=== PATIENT | male | born 1930 | race Caucasian/White ===

== ENCOUNTER 2016-09-04 12:41 | Inpatient (IN) ==
[2016-09-04] MEDS ORDERED: *HR* HYDROcodone/Acet 5/325 mg TABLET PO PRN (23:12)
[2016-09-04] MEDS ORDERED: Acetaminophen/Butalbital/CaffeineTABLET PO PRN (23:12)
[2016-09-05] MEDS ORDERED: cloNIDine HCl 0.1 MG TABLET PO ONE (00:38)
[2016-09-05 05:32] LABS: Basophils # 0.1 K/mcL (0.0-0.2); Eosinophils # 0.2 K/mcL (0.0-0.6); Eosinophils % 3.2 %; Hemoglobin 10.9 g/dL (12.9-16.9); Immature Granulocytes % 0.4 % (0-4); Lymphocytes # 1.6 K/mcL (0.6-4.6); Lymphocytes % 23.7 %; Mean Corpuscular Hemoglobin 28.9 pg (28.0-33.3); Mean Corpuscular Volume 87.5 fL (83.0-100.0); Mean Platelet Volume 9.9 fL (9.4-12.4); Monocytes # 0.6 K/mcL (0.0-1.3); Monocytes % 9.3 %; Neutrophils # 4.2 K/mcL (1.6-8.9); Platelet Count 186 K/mcL (140-400); Red Blood Count 3.77 M/mcL (4.19-5.50); Red Cell Distribution Width 13.4 % (11.5-14.5); Segmented Neutrophils % 62.4 %
[2016-09-05 05:33] LABS: INR 1.1; Prothrombin Time 11.9 Seconds (9.4-12.1)
[2016-09-05 05:35] LABS: Activated Partial Thrombo Time 29.2 Seconds (26.0-36.0)
[2016-09-05 05:38] LABS: BUN/Creatinine Ratio 11 (6-26); Blood Urea Nitrogen 13 mg/dL (8-26); Calcium 8.7 mg/dL (8.6-10.8); Carbon Dioxide 25 mEq/L (19-29); Chloride 108 mEq/L (98-109); Glucose 127 mg/dL (70-99); Osmolality,Calculated 298 (280-300); Potassium 2.9 mEq/L (3.5-4.5); Sodium 143 mEq/L (136-145); eGFR For African Americans > 60 (> 60); eGFR For Non-African Americans 60 (> 60)
[2016-09-05] MEDS: predniSONE 5 MG TABLET PO SCH (08:15)
[2016-09-05] MEDS: Metoprolol XL (24 HR) Succ 50 MG TAB.ER.24H PO SCH (08:16)
[2016-09-05] MEDS: Multivit/Ca/Min/Fe/FA 1 TAB TABLET PO SCH (08:16)
[2016-09-05] MEDS: amLODIPine 5 MG TABLET PO SCH (08:16)
[2016-09-05] MEDS: Aspirin 81 MG TAB.CHEW PO SCH (08:16)
[2016-09-05] MEDS: GARLIC 100 MG PO SCH (08:17)
[2016-09-05] MEDS: LUTEIN 10 MG PO SCH (08:17)
[2016-09-05] MEDS: *HR* Metformin 500 MG TABLET PO SCH (12:16)
--- NOTE | 2016-09-05 19:02 | Internal Med History&Physical ---
Date of Encounter: 09/05/16 Time of Encounter: 19:00 Assessment and Plan (1) Hypertension Current visit: Yes Status: Chronic Given Her dose of clonidine last night. On metoprolol and Cozaar. Qualifiers: Hypertension type: essential hypertension Qualified Code(s): I10 - Essential (primary) hypertension (2) Acute CVA (cerebrovascular accident) Current visit: Yes Status: Acute Left basal ganglia, frontal she can make stroke. Slurred speech. PTOT will work on improving activity of daily living. Speech work on therapy. Internal Medicine - H&P: HPI Admitted From: Intrahospital Transfer Plans for Post Hospital Care: Home History of present illness: Mr. Maria is a 86 year old male admitted to this facility after having a left basal ganglia frontal lobe she can make stroke. Residual deficit his slurred speech. Patient is a history of hypertension. Today's examination he has no specific new complaint. No shortness of breath. No headache. No lethargy. No pain. No nausea no vomiting. Past Med Surg Social Fam HX - Past Medical History Medical history: hypertension, cancer Psychiatric history: anxiety, depression - Past Surgical History Surgical History: angioplasty/stent - Social History Smoking Status: Former smoker Smokeless Tobacco Status: No Alcohol use: none Drug use: none Internal Medicine - H&P: Meds Aspirin 81 mg PO DAILY 09/04/15 [History] Doxazosin Mesylate [Cardura Xl] 4 mg PO HS 09/04/15 [History] Irbesartan [Avapro] 300 mg PO DAILY 09/04/15 [History] Meclizine HCl [Verticalm] 25 mg PO TID PRN 09/04/15 [History] Potassium Chloride [Klor-Con Sprinkle] 20 meq PO BID 09/04/15 [History] Amlodipine Besylate 10 mg PO DAILY 09/02/16 [History] Atorvastatin Calcium [Lipitor] 80 mg PO HS 09/02/16 [History] Loratadine [Claritin] 10 mg PO PRN PRN 09/02/16 [History] Metoprolol Succinate 200 mg PO DAILY 09/02/16 [History] metFORMIN [Glucophage] 500 mg PO 1200 09/02/16 [History] predniSONE [Prednisone] 2.5 mg PO DAILY 09/02/16 [History] Donepezil [Aricept] 5 mg PO DAILY 09/03/16 [History] Garlic [Odor Free Garlic] 100 mg PO DAILY 09/03/16 [History] Lutein 10 mg PO DAILY 09/03/16 [History] Multivitamin [One Daily Multivitamin] 1 each PO DAILY 09/03/16 [History] Butalb/Acetaminophen/Caffeine [Fioricet 50-300-40 mg Capsule] 1 each PO PRN PRN 09/04/16 [History] Clopidogrel [Plavix] 75 mg PO DAILY #30 tablet 09/04/16 [Rx] HYDROcodone/Acet 5/325 mg [[place] 5-325 mg] 1 tab PO TID PRN #12 tab 09/04/16 [Rx ] Allergies No Known Allergies Allergy (Verified 09/02/15 09:19) All Systems PM: A 10-system review of systems was performed and is negative for pertinent findings except as documented above in the HPI. - Constitutional Constitutional: falls, malaise - Cardiovascular Cardiovascular ROS IM: no chest pain, no diaphoresis, no dyspnea, no lightheadedness, no palpitations, no syncope - Respiratory Respiratory: no cough, no dyspnea, no wheezing, no excessive phlegm production - Gastrointestinal Gastrointestinal: no abdominal pain, no diarrhea, no hematemesis, no hematochezia, no melena, no nausea, no vomiting - Musculoskeletal Musculoskeletal ROS IM: arthralgias, muscle weakness - Neurological Neurological ROS: abnormal gait, abnormal speech - Constitutional Vitals: Temp Pulse Resp BP Pulse Ox 97.6 F 69 16 189/92 95 09/05/16 16:19 09/05/16 16:19 09/05/16 16:19 09/05/16 16:19 09/05/16 16:19 General appearance: Present: A&O X 2, no acute distress - Respiratory Respiratory exam: Present: CTAB. Absent: accessory muscle use, rales, rhonchi, wheezes - Cardiovascular Cardiovascular exam: Present: RRR, +S1, +S2. Absent: diastolic murmur, gallop, rubs, systolic murmur - Extremities Exam Extremities exam: Absent: calf tenderness, pedal edema - Neurological Exam Neurological exam: Present: speech deficit Internal Med - H&P Results - Labs CBC & Chem 7: 09/05/16 05:20 09/05/16 05:20 Labs: Short CBC 09/05/16 Range/Units 05:20 WBC 6.8 (4.3-11.1) K/mcL Hgb 10.9 L (12.9-16.9) g/dL Hct 33.0 L (37.5-50.1) % Plt Count 186 (140-400) K/mcL Neutrophils # 4.2 (1.6-8.9) K/mcL BMP 09/05/16 05:20 Sodium 143 Potassium 2.9 L Chloride 108 Carbon Dioxide 25 BUN 13 Creatinine 1.16 Glucose 127 H Calcium 8.7 - VTE Documentation of Mechanical Device: Graduated compression elastic hosiery
[2016-09-06] MEDS: Aspirin 81 MG TAB.CHEW PO SCH (08:23)
[2016-09-06] MEDS: amLODIPine 5 MG TABLET PO SCH (08:23)
[2016-09-06] MEDS: Metoprolol XL (24 HR) Succ 50 MG TAB.ER.24H PO SCH (08:23)
[2016-09-06] MEDS: predniSONE 5 MG TABLET PO SCH (08:24)
[2016-09-06] MEDS: Multivit/Ca/Min/Fe/FA 1 TAB TABLET PO SCH (08:24)
[2016-09-06] MEDS: GARLIC 100 MG PO SCH (08:37)
[2016-09-06] MEDS: LUTEIN 10 MG PO SCH (08:37)
--- NOTE | 2016-09-06 09:21 | Internal Med Progress Note ---
Date of Encounter: 09/06/16 Time of Encounter: 09:19 - Assessment and plan (1) Acute CVA (cerebrovascular accident) Current Visit: Yes Status: Acute Assessment and plan: PT and OT gianluca Lazcano speech working on deficit. (2) Hypertension Current Visit: Yes Status: Chronic Assessment and plan: Still slightly elevated. We will give metoprolol and Cozaar this morning. Qualifiers: Hypertension type: essential hypertension Qualified Code(s): I10 - Essential (primary) hypertension (3) Hypokalemia Current Visit: Yes Status: Acute Assessment and plan: K supplement increased. Will follow level - Time Spent With Patient less than 15 minutes - Subjective Interval history: No new for his complaint except for the same speech abnormality. No headache. No chest pain. No nausea no vomiting. - Constitutional Vitals: Temp Pulse Resp BP Pulse Ox 98.6 F 67 18 174/90 94 09/06/16 08:28 09/06/16 08:28 09/06/16 08:28 09/06/16 08:28 09/06/16 08:28 General appearance: Present: A&O X 2, no acute distress - Respiratory Respiratory exam: Present: CTAB. Absent: accessory muscle use, rales, rhonchi, wheezes - Cardiovascular Cardiovascular exam: Present: RRR, +S1, +S2. Absent: diastolic murmur, gallop, rubs, systolic murmur - Extremities Exam Extremities exam: Present: warm, radial pulses palpable and symetrical. Absent : calf tenderness, cyanotic, pedal edema - Neurological Exam Neurological exam: Present: speech deficit Internal Medicine: Result - Labs CBC & Chem 7: 09/05/16 05:20 09/05/16 05:20 - ABG Interpretation ABG results: PT/INR, D-dimer PT 11.9 Seconds (9.4-12.1) 09/05/16 05:20 - VTE Documentation of Mechanical Device: Graduated compression elastic hosiery Consult Discharge Plan - Plan Referrals: Job Hinojosa, [employer]ER [Primary Care Provider] -
[2016-09-06] MEDS: *HR* Metformin 500 MG TABLET PO SCH (12:24)
[2016-09-07 05:16] LABS: INR 1.1; Prothrombin Time 11.9 Seconds (9.4-12.1)
[2016-09-07 05:19] LABS: Basophils # 0.1 K/mcL (0.0-0.2); Eosinophils # 0.2 K/mcL (0.0-0.6); Eosinophils % 2.6 %; Hematocrit 35.4 % (37.5-50.1); Hemoglobin 11.9 g/dL (12.9-16.9); Immature Granulocytes % 0.3 % (0-4); Lymphocytes # 1.7 K/mcL (0.6-4.6); Lymphocytes % 24.1 %; Mean Corpuscular HGB Conc 33.6 g/dL (31.6-35.5); Mean Corpuscular Hemoglobin 29.5 pg (28.0-33.3); Mean Corpuscular Volume 87.6 fL (83.0-100.0); Mean Platelet Volume 9.9 fL (9.4-12.4); Monocytes # 0.7 K/mcL (0.0-1.3); Monocytes % 9.4 %; Neutrophils # 4.4 K/mcL (1.6-8.9); Platelet Count 172 K/mcL (140-400); Red Blood Count 4.04 M/mcL (4.19-5.50); Red Cell Distribution Width 13.6 % (11.5-14.5); Segmented Neutrophils % 62.6 %
[2016-09-07 05:20] LABS: Activated Partial Thrombo Time 29.7 Seconds (26.0-36.0)
[2016-09-07 05:24] LABS: BUN/Creatinine Ratio 18 (6-26); Blood Urea Nitrogen 18 mg/dL (8-26); Calcium 8.9 mg/dL (8.6-10.8); Carbon Dioxide 24 mEq/L (19-29); Chloride 109 mEq/L (98-109); Glucose 123 mg/dL (70-99); Osmolality,Calculated 301 (280-300); Potassium 3.1 mEq/L (3.5-4.5); Sodium 144 mEq/L (136-145); eGFR For African Americans > 60 (> 60); eGFR For Non-African Americans > 60 (> 60)
[2016-09-07] MEDS: Metoprolol XL (24 HR) Succ 50 MG TAB.ER.24H PO SCH (09:30)
[2016-09-07] MEDS: amLODIPine 5 MG TABLET PO SCH (09:31)
[2016-09-07] MEDS: Loratadine 10 MG TABLET PO PRN (09:31)
[2016-09-07] MEDS: GARLIC 100 MG PO SCH (09:32)
[2016-09-07] MEDS: predniSONE 5 MG TABLET PO SCH (09:32)
[2016-09-07] MEDS: Multivit/Ca/Min/Fe/FA 1 TAB TABLET PO SCH (09:32)
[2016-09-07] MEDS: Aspirin 81 MG TAB.CHEW PO SCH (09:32)
[2016-09-07] MEDS: LUTEIN 10 MG PO SCH (09:32)
--- NOTE | 2016-09-07 10:07 | Internal Med Progress Note ---
Date of Encounter: 09/07/16 Time of Encounter: 10:05 - Assessment and plan (1) Acute CVA (cerebrovascular accident) Current Visit: Yes Status: Acute Assessment and plan: PT and OT speech working on deficit. (2) Hypertension Current Visit: Yes Status: Chronic Assessment and plan: Still slightly elevated. We will give metoprolol and Cozaar this morning. Qualifiers: Hypertension type: essential hypertension Qualified Code(s): I10 - Essential (primary) hypertension (3) Hypokalemia Current Visit: Yes Status: Acute Assessment and plan: K supplement increased. K improve to 3/6 - Subjective Interval history: No new for his complaint except for the same speech abnormality. No headache. No chest pain. No nausea no vomiting. - Constitutional Vitals: Temp Pulse Resp BP Pulse Ox 97.8 F 69 16 175/102 93 09/07/16 07:00 09/07/16 07:00 09/07/16 07:00 09/07/16 07:00 09/07/16 07:00 General appearance: Present: A&O X 2, no acute distress - Respiratory Respiratory exam: Present: CTAB. Absent: accessory muscle use, rales, rhonchi, wheezes - Cardiovascular Cardiovascular exam: Present: RRR, +S1, +S2. Absent: diastolic murmur, gallop, rubs, systolic murmur - GI/Abdominal GI/Abdominal exam: Present: normal bowel sounds, soft, no peritoneal signs. Absent: distended, tenderness - Neurological Exam Neurological exam: Present: speech deficit Internal Medicine: Result - Labs CBC & Chem 7: 09/07/16 04:45 09/07/16 04:45 Labs: Short CBC 09/07/16 Range/Units 04:45 WBC 7.0 (4.3-11.1) K/mcL Hgb 11.9 L (12.9-16.9) g/dL Hct 35.4 L (37.5-50.1) % Plt Count 172 (140-400) K/mcL Neutrophils # 4.4 (1.6-8.9) K/mcL BMP 09/07/16 04:45 Sodium 144 Potassium 3.1 L Chloride 109 Carbon Dioxide 24 BUN 18 Creatinine 1.02 Glucose 123 H Calcium 8.9 - ABG Interpretation ABG results: PT/INR, D-dimer PT 11.9 Seconds (9.4-12.1) 09/07/16 04:45 - VTE Documentation of Mechanical Device: Graduated compression elastic hosiery Consult Discharge Plan - Plan Referrals: Job Hinojosa CNP [Primary Care Provider] -
[2016-09-07] MEDS: *HR* Metformin 500 MG TABLET PO SCH (13:38)
[2016-09-08] MEDS: predniSONE 5 MG TABLET PO SCH (08:35)
[2016-09-08] MEDS: Aspirin 81 MG TAB.CHEW PO SCH (08:35)
[2016-09-08] MEDS: amLODIPine 5 MG TABLET PO SCH (08:35)
[2016-09-08] MEDS: Loratadine 10 MG TABLET PO PRN (08:36)
[2016-09-08] MEDS: Multivit/Ca/Min/Fe/FA 1 TAB TABLET PO SCH (08:36)
[2016-09-08] MEDS: GARLIC 100 MG PO SCH (08:36)
[2016-09-08] MEDS: Metoprolol XL (24 HR) Succ 50 MG TAB.ER.24H PO SCH (08:36)
[2016-09-08] MEDS: LUTEIN 10 MG PO SCH (08:36)
--- NOTE | 2016-09-08 14:16 | Internal Med Progress Note ---
Date of Encounter: 09/08/16 Time of Encounter: 14:14 - Assessment and plan (1) Hypertension Current Visit: Yes Status: Chronic Assessment and plan: His blood pressure diastolically is still a little elevated we will follow that. Qualifiers: Hypertension type: essential hypertension Qualified Code(s): I10 - Essential (primary) hypertension (2) Chronic steroid use Current Visit: No Status: Chronic Assessment and plan: Noted by history (3) Coronary artery disease Current Visit: No Status: Chronic Assessment and plan: By history Qualifiers: Coronary Disease-Associated Artery/Lesion type: [place] artery [place] vs. transplanted heart: [place] heart Associated angina: without angina Qualified Code(s): I25.10 - Atherosclerotic heart disease of [place] coronary artery without angina pectoris (4) Acute CVA (cerebrovascular accident) Current Visit: Yes Status: Acute Assessment and plan: Main problem patient is here for. Rehabilitation due to a CVA. - Time Spent With Patient less than 15 minutes - Subjective Interval history: Patient's working with her therapist and is receiving PT OT TR and speech. - Constitutional Vitals: Temp Pulse Resp BP Pulse Ox 97.7 F 67 18 178/91 93 09/08/16 07:00 09/08/16 07:00 09/08/16 07:00 09/08/16 07:00 09/08/16 07:00 General appearance: Present: A&O X 2, no acute distress - Head Head exam: Present: atraumatic, normal inspection, normocephalic - Neck Neck exam general surgery: Present: supple, trachea midline. Absent: lymphadenopathy - Respiratory Respiratory exam: Present: CTAB. Absent: accessory muscle use, rales, rhonchi, wheezes - Cardiovascular Cardiovascular exam: Present: RRR, +S1, +S2. Absent: diastolic murmur, gallop, rubs, systolic murmur Internal Medicine: Result - Labs CBC & Chem 7: 09/07/16 04:45 09/07/16 04:45 Labs: Potassium was low but otherwise lab with stable - ABG Interpretation ABG results: PT/INR, D-dimer PT 11.9 Seconds (9.4-12.1) 09/07/16 04:45 - VTE Documentation of Mechanical Device: Graduated compression elastic hosiery Consult Discharge Plan - Plan Referrals: Job Hinojosa [employer]AD [Primary Care Provider] -
[2016-09-08] MEDS: *HR* Metformin 500 MG TABLET PO SCH (14:21)
[2016-09-09] MEDS: Metoprolol XL (24 HR) Succ 50 MG TAB.ER.24H PO SCH (09:38)
[2016-09-09] MEDS: Aspirin 81 MG TAB.CHEW PO SCH (09:38)
[2016-09-09] MEDS: amLODIPine 5 MG TABLET PO SCH (09:38)
[2016-09-09] MEDS: predniSONE 5 MG TABLET PO SCH (09:39)
[2016-09-09] MEDS: Multivit/Ca/Min/Fe/FA 1 TAB TABLET PO SCH (09:39)
[2016-09-09] MEDS: LUTEIN 10 MG PO SCH (09:39)
[2016-09-09] MEDS: GARLIC 100 MG PO SCH (09:39)
[2016-09-09] MEDS: *HR* Metformin 500 MG TABLET PO SCH (12:36)
--- NOTE | 2016-09-09 14:48 | Physcial Medicine-Consult Note ---
Date of Encounter: 09/09/16 Time of Encounter: 14:41 Physical Medicine - AP (1) CVA (cerebral vascular accident) Status: Acute Assessment and plan: 1. Mr. Maria is suffering from sequelae from a CVA. He will continue with intensive PT/OT/ST/TR. We will focus on gait, safety, transfers and ADLs. Plan for discharge to home on 09/18/16. Code(s): I63.9 - Cerebral infarction, unspecified SNOMED Code(s): 431630531 Physical Medicine - HPI - Data of Consult Consult date: 09/09/16 Requesting Physician: Mario Dias DO Primary Care Provider: Job Hinojosa CNP - Consult Narrative Reason for consult: CVA History of present illness: Mr. Maria is a 86 year old male who was admitted to [facility] for inpatient rehabilitation following a cva. Patient initially presented with complaints of weakness and slurred speech. He had an mri of his brain which revealed small acute infarctes in the region of the left basal ganglia and the periventricular white matter of the left frontal lobe. He was stabilized and transferred for inpatient rehabilitation. CC: Mario Dias DO Past Med Surg Social Fam HX - Past Medical History Medical history: hypertension, cancer Psychiatric history: anxiety, depression - Past Surgical History Surgical History: angioplasty/stent - Social History Smoking Status: Former smoker Smokeless Tobacco Status: No Alcohol use: none Drug use: none Medications and Allergies Aspirin 81 mg PO DAILY 09/04/15 [History] Doxazosin Mesylate [Cardura Xl] 4 mg PO HS 09/04/15 [History] Irbesartan [Avapro] 300 mg PO DAILY 09/04/15 [History] Meclizine HCl [Verticalm] 25 mg PO TID PRN 09/04/15 [History] Potassium Chloride [Klor-Con Sprinkle] 20 meq PO BID 09/04/15 [History] Amlodipine Besylate 10 mg PO DAILY 09/02/16 [History] Atorvastatin Calcium [Lipitor] 80 mg PO HS 09/02/16 [History] Loratadine [Claritin] 10 mg PO PRN PRN 09/02/16 [History] Metoprolol Succinate 200 mg PO DAILY 09/02/16 [History] metFORMIN [Glucophage] 500 mg PO 1200 09/02/16 [History] predniSONE [Prednisone] 2.5 mg PO DAILY 09/02/16 [History] Donepezil [Aricept] 5 mg PO DAILY 09/03/16 [History] Garlic [Odor Free Garlic] 100 mg PO DAILY 09/03/16 [History] Lutein 10 mg PO DAILY 09/03/16 [History] Multivitamin [One Daily Multivitamin] 1 each PO DAILY 09/03/16 [History] Butalb/Acetaminophen/Caffeine [Fioricet 50-300-40 mg Capsule] 1 each PO PRN PRN 09/04/16 [History] Clopidogrel [Plavix] 75 mg PO DAILY #30 tablet 09/04/16 [Rx] HYDROcodone/Acet 5/325 mg [[place] 5-325 mg] 1 tab PO TID PRN #12 tab 09/04/16 [Rx ] Allergies No Known Allergies Allergy (Verified 09/02/15 09:19) - Constitutional Constitutional: Present: fatigue. Absent: anorexia, fever(s) - Cardiovascular Cardiovascular: Absent: chest pain, dyspnea - Respiratory Respiratory: Absent: dyspnea - Gastrointestinal Gastrointestinal: Absent: abdominal pain - Musculoskeletal Musculoskeletal: Present: abnormal gait - Neurological Neurological: Present: abnormal gait Physical Medicine - Exam - Constitutional Vitals: Temp Pulse Resp BP Pulse Ox 97.7 F 80 14 181/54 93 09/09/16 07:52 09/09/16 09:37 09/09/16 07:52 09/09/16 07:52 09/09/16 07:52 General appearance: morbidly obese Exam: Patient answers questions-speech is garbled at times. He is able to follow 2 step commands. - Respiratory Respiratory exam: Present: CTAB - Cardiovascular Cardiovascular exam: Present: RRR - GI/Abdominal GI/Abdominal exam: Present: normal bowel sounds, soft. Absent: tenderness - Extremities Exam Extremities exam: Absent: calf tenderness, tenderness Additional comments: Motor strength is grossly 4-5/5 in the bilateral upper and lower limbs. - Neurological Exam Neurological exam: Present: alert, CN II-XII intact Additional comments: Reflexes are absent symmetrically in the upper and lower limbs. Physical Medicine - Results - Labs CBC & Chem 7: 09/07/16 04:45 09/09/16 05:55 Labs: BMP 09/09/16 05:55 Potassium 3.2 L Consult Discharge Plan - Plan Referrals: Job Hinojosa [employer]OCIATE DIRECTOR [employer] [Primary Care Provider] -
--- NOTE | 2016-09-09 16:09 | Psychological Evaluation ---
Date of Encounter: 09/09/16 Time of Encounter: 11:30 History of Present Illness History of present illness: Mr. Maria is an 86 year old male admitted to [facility] following a stroke in the left basal ganglia and the periventricular white matter of left frontal lobe. He was seen on this date to assess his current cognitive and emotional functioning. Past Medical History Medical history: Significant for dementia, HTN, cancer and coronary artery disease. - Psychiatric History Additional Psychiatric History: Mr. Maria denied a history of psychiatric hospitalization or mental health treatment. Medical records indicate a history of anxiety/depression. There is no known family history of psychiatric or mental health issues. Home Medications and Allergies Aspirin 81 mg PO DAILY 09/04/15 [History] Doxazosin Mesylate [Cardura Xl] 4 mg PO HS 09/04/15 [History] Irbesartan [Avapro] 300 mg PO DAILY 09/04/15 [History] Meclizine HCl [Verticalm] 25 mg PO TID PRN 09/04/15 [History] Potassium Chloride [Klor-Con Sprinkle] 20 meq PO BID 09/04/15 [History] Amlodipine Besylate 10 mg PO DAILY 09/02/16 [History] Atorvastatin Calcium [Lipitor] 80 mg PO HS 09/02/16 [History] Loratadine [Claritin] 10 mg PO PRN PRN 09/02/16 [History] Metoprolol Succinate 200 mg PO DAILY 09/02/16 [History] metFORMIN [Glucophage] 500 mg PO 1200 09/02/16 [History] predniSONE [Prednisone] 2.5 mg PO DAILY 09/02/16 [History] Donepezil [Aricept] 5 mg PO DAILY 09/03/16 [History] Garlic [Odor Free Garlic] 100 mg PO DAILY 09/03/16 [History] Lutein 10 mg PO DAILY 09/03/16 [History] Multivitamin [One Daily Multivitamin] 1 each PO DAILY 09/03/16 [History] Butalb/Acetaminophen/Caffeine [Fioricet 50-300-40 mg Capsule] 1 each PO PRN PRN 09/04/16 [History] Clopidogrel [Plavix] 75 mg PO DAILY #30 tablet 09/04/16 [Rx] HYDROcodone/Acet 5/325 mg [[place] 5-325 mg] 1 tab PO TID PRN #12 tab 09/04/16 [Rx ] Allergies No Known Allergies Allergy (Verified 09/02/15 09:19) Social History - Social History Social History: Mr. Maria has been for over 60 years to his . They have two daughters (ages 64 and 61). 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 Prior to his recent stroke, he spent his days "taking it easy around the house". 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 He stated that he does not have any hobbies. His social support system consists of his and two daughters. - Tobacco Use Smoking Status: Former smoker (Quit 15-20 years ago) - Alcohol Use Alcohol Use: none Cognitive/Emotional Assessment - Cognitive Ability Additional Findings: Mr. Maria was alert, attentive and oriented to person and time (He used the board in his room to get the date.) He was partially oriented for place (knew he was in a rehab hospital but stated we were in [place]). Speech was noted to be muffled and he tended to mumble at times making his speech unintelligible. Cognitively, he performed within the average range on measures of attention/concentration, confrontational naming and mental arithmetic. On a measure of sentence repetition, he scored within the mildly impaired range. His performance on measures of delayed verbal recall, auditory comprehension and abstract verbal reasoning, he scored within the moderately impaired range. Mr. Maria did not appear aware of his cognitive strengths or weaknesses. Of note, he has a significant hearing impairment and did not wear a hearing aid. - Emotional Status Additional Findings: Mr. Maria was pleasant and cooperative. He described his mood as "I"m happy" and denied symptoms of depression. He did not appear anxious or distressed. He acknowledged that he has some chronic low back pain but offered no other complaints. He displayed good emotional control and mood appeared euthymic. Assessment & Plan - Diagnosis (1) Cognitive disorder - Treatment Plan Treatment Plan/Recommendations: Will follow Mr. Maria as indicated. Cognitively, he has significant deficits in delayed verbal recall and learning of new information as well as auditory comprehension for more complex information. Emotionally, he appears to be coping fairly well and does not appear distressed or depressed. Procedures - Session Time Session Start Time: 11:30 Session Stop Time: 12:00
[2016-09-10] MEDS: amLODIPine 5 MG TABLET PO SCH (08:30)
[2016-09-10] MEDS: Multivit/Ca/Min/Fe/FA 1 TAB TABLET PO SCH (08:30)
[2016-09-10] MEDS: Metoprolol XL (24 HR) Succ 50 MG TAB.ER.24H PO SCH (08:30)
[2016-09-10] MEDS: Aspirin 81 MG TAB.CHEW PO SCH (08:30)
[2016-09-10] MEDS: predniSONE 5 MG TABLET PO SCH (08:30)
[2016-09-10] MEDS: GARLIC 100 MG PO SCH (08:31)
[2016-09-10] MEDS: LUTEIN 10 MG PO SCH (08:31)
[2016-09-10] MEDS: *HR* Metformin 500 MG TABLET PO SCH (12:38)
--- NOTE | 2016-09-10 13:13 | Internal Med Progress Note ---
Date of Encounter: 09/10/16 Time of Encounter: 13:10 - Assessment and plan (1) Hypertension Current Visit: Yes Status: Chronic Assessment and plan: Blood pressure seems controlled Qualifiers: Hypertension type: essential hypertension Qualified Code(s): I10 - Essential (primary) hypertension (2) Chronic steroid use Current Visit: No Status: Chronic Assessment and plan: Noted (3) Coronary artery disease Current Visit: No Status: Chronic Qualifiers: Coronary Disease-Associated Artery/Lesion type: [place] artery [place] vs. transplanted heart: [place] heart Associated angina: without angina Qualified Code(s): I25.10 - Atherosclerotic heart disease of [place] coronary artery without angina pectoris (4) Acute CVA (cerebrovascular accident) Current Visit: Yes Status: Acute Assessment and plan: Patient is here for therapy status post CVA - Time Spent With Patient less than 15 minutes - Subjective Interval history: Patient's working with her therapist and is receiving PT OT TR and speech. Patient has no complaints,he is eating and states that he is doing okay - Constitutional Vitals: Temp Pulse Resp BP Pulse Ox 98.0 F 66 18 155/88 93 09/10/16 07:44 09/10/16 07:44 09/10/16 07:44 09/10/16 07:44 09/10/16 07:44 General appearance: Present: A&O X 2, no acute distress - Head Head exam: Present: atraumatic, normal inspection, normocephalic - Neck Neck exam general surgery: Present: supple, trachea midline. Absent: lymphadenopathy - Respiratory Respiratory exam: Present: CTAB. Absent: accessory muscle use, rales, rhonchi, wheezes - Cardiovascular Cardiovascular exam: Present: RRR, +S1, +S2. Absent: diastolic murmur, gallop, rubs, systolic murmur Internal Medicine: Result - Labs CBC & Chem 7: 09/07/16 04:45 09/09/16 05:55 Labs: Lab is okay except for potassium which we will follow and supplement - ABG Interpretation ABG results: PT/INR, D-dimer PT 11.9 Seconds (9.4-12.1) 09/07/16 04:45 - VTE Documentation of Mechanical Device: Graduated compression elastic hosiery Consult Discharge Plan - Plan Referrals: Job Hinojosa FREIGHT CONDUCTOR [Primary Care Provider] -
[2016-09-11] MEDS: Metoprolol XL (24 HR) Succ 50 MG TAB.ER.24H PO SCH (07:52)
[2016-09-11] MEDS: amLODIPine 5 MG TABLET PO SCH (07:53)
[2016-09-11] MEDS: predniSONE 5 MG TABLET PO SCH (07:53)
[2016-09-11] MEDS: Multivit/Ca/Min/Fe/FA 1 TAB TABLET PO SCH (07:53)
[2016-09-11] MEDS: Aspirin 81 MG TAB.CHEW PO SCH (07:53)
--- NOTE | 2016-09-11 09:08 | Internal Med Progress Note ---
Date of Encounter: 09/11/16 Time of Encounter: 09:07 - Assessment and plan (1) Acute CVA (cerebrovascular accident) Current Visit: Yes Status: Acute Assessment and plan: He will continue with intensive PT/OT/ST/TR. We will focus on gait, safety, transfers and ADLs. PT OT working on gait and transfer and balance. Speech therapy ongoing. Making progress. (2) Hypertension Current Visit: Yes Status: Chronic Qualifiers: Hypertension type: essential hypertension Qualified Code(s): I10 - Essential (primary) hypertension (3) Hypokalemia Current Visit: Yes Status: Acute - Subjective Interval history: No new for his complaint except for the same speech abnormality. No headache. No chest pain. No nausea no vomiting. - Constitutional Vitals: Temp Pulse Resp BP Pulse Ox 97.6 F 66 16 179/68 95 09/11/16 07:00 09/11/16 07:00 09/11/16 07:00 09/11/16 07:00 09/11/16 07:00 General appearance: Present: A&O X 2, no acute distress - Respiratory Respiratory exam: Present: CTAB. Absent: accessory muscle use, rales, rhonchi, wheezes - Cardiovascular Cardiovascular exam: Present: RRR, +S1, +S2. Absent: diastolic murmur, gallop, rubs, systolic murmur Internal Medicine: Result - Labs CBC & Chem 7: 09/07/16 04:45 09/11/16 05:10 Labs: BMP 09/11/16 05:10 Potassium 3.2 L - ABG Interpretation ABG results: PT/INR, D-dimer PT 11.9 Seconds (9.4-12.1) 09/07/16 04:45 - VTE Documentation of Mechanical Device: Graduated compression elastic hosiery Consult Discharge Plan - Plan Referrals: Job Hinojosa, DESULFURIZER MACHINE [Primary Care Provider] -
[2016-09-11] MEDS: *HR* Metformin 500 MG TABLET PO SCH (12:55)
[2016-09-12] MEDS: predniSONE 5 MG TABLET PO SCH (10:17)
[2016-09-12] MEDS: amLODIPine 5 MG TABLET PO SCH (10:17)
[2016-09-12] MEDS: Aspirin 81 MG TAB.CHEW PO SCH (10:17)
[2016-09-12] MEDS: Metoprolol XL (24 HR) Succ 50 MG TAB.ER.24H PO SCH (10:18)
[2016-09-12] MEDS: Multivit/Ca/Min/Fe/FA 1 TAB TABLET PO SCH (10:18)
[2016-09-12] MEDS: *HR* Metformin 500 MG TABLET PO SCH (12:31)
[2016-09-13] MEDS: Aspirin 81 MG TAB.CHEW PO SCH (09:25)
[2016-09-13] MEDS: Multivit/Ca/Min/Fe/FA 1 TAB TABLET PO SCH (09:25)
[2016-09-13] MEDS: amLODIPine 5 MG TABLET PO SCH (09:25)
[2016-09-13] MEDS: Metoprolol XL (24 HR) Succ 50 MG TAB.ER.24H PO SCH (09:26)
[2016-09-13] MEDS: predniSONE 5 MG TABLET PO SCH (09:26)
[2016-09-13] MEDS: *HR* Metformin 500 MG TABLET PO SCH (13:07)
--- NOTE | 2016-09-13 14:01 | Internal Med Progress Note ---
Date of Encounter: 09/13/16 Time of Encounter: 14:00 - Assessment and plan (1) Acute CVA (cerebrovascular accident) Current Visit: Yes Status: Acute Assessment and plan: He will continue with intensive PT/OT/ST/TR. We will focus on gait, safety, transfers and ADLs. PT OT working on gait and transfer and balance. Speech therapy ongoing. Making progress. (2) Hypertension Current Visit: Yes Status: Chronic Assessment and plan: Blood pressure seems controlled Qualifiers: Hypertension type: essential hypertension Qualified Code(s): I10 - Essential (primary) hypertension (3) Hypokalemia Current Visit: Yes Status: Acute - Subjective Interval history: No new for his complaint except for the same speech abnormality. No headache. No chest pain. No nausea no vomiting. - Constitutional Vitals: Temp Pulse Resp BP Pulse Ox 98 F 78 16 147/99 98 09/13/16 07:00 09/13/16 07:00 09/13/16 07:00 09/13/16 07:00 09/13/16 07:00 General appearance: Present: A&O X 2, no acute distress - Respiratory Respiratory exam: Present: CTAB. Absent: accessory muscle use, rales, rhonchi, wheezes - GI/Abdominal GI/Abdominal exam: Present: normal bowel sounds, soft, no peritoneal signs. Absent: distended, tenderness - Neurological Exam Neurological exam: Present: oriented X3, speech deficit Internal Medicine: Result - Labs CBC & Chem 7: 09/07/16 04:45 09/11/16 05:10 - ABG Interpretation ABG results: PT/INR, D-dimer PT 11.9 Seconds (9.4-12.1) 09/07/16 04:45 - VTE Documentation of Mechanical Device: Graduated compression elastic hosiery Consult Discharge Plan - Plan Referrals: Job Hinojosa, RESIDENTIAL NURSE [Primary Care Provider] -
[2016-09-14 05:27] LABS: INR 1.1
[2016-09-14 05:28] LABS: Basophils # 0.1 K/mcL (0.0-0.2); Basophils % 0.9 %; Eosinophils # 0.2 K/mcL (0.0-0.6); Eosinophils % 3.4 %; Hematocrit 33.5 % (37.5-50.1); Hemoglobin 11.2 g/dL (12.9-16.9); Immature Granulocytes % 0.5 % (0-4); Lymphocytes # 1.7 K/mcL (0.6-4.6); Lymphocytes % 26.2 %; Mean Corpuscular HGB Conc 33.4 g/dL (31.6-35.5); Mean Corpuscular Hemoglobin 29.1 pg (28.0-33.3); Mean Platelet Volume 9.7 fL (9.4-12.4); Monocytes # 0.6 K/mcL (0.0-1.3); Monocytes % 9.7 %; Neutrophils # 3.8 K/mcL (1.6-8.9); Platelet Count 199 K/mcL (140-400); Red Blood Count 3.85 M/mcL (4.19-5.50); Red Cell Distribution Width 13.5 % (11.5-14.5); Segmented Neutrophils % 59.3 %
[2016-09-14 05:30] LABS: Activated Partial Thrombo Time 31.1 Seconds (26.0-36.0)
[2016-09-14 05:40] LABS: BUN/Creatinine Ratio 20 (6-26); Blood Urea Nitrogen 20 mg/dL (8-26); Calcium 8.8 mg/dL (8.6-10.8); Carbon Dioxide 24 mEq/L (19-29); Chloride 110 mEq/L (98-109); Glucose 113 mg/dL (70-99); Osmolality,Calculated 301 (280-300); Potassium 3.2 mEq/L (3.5-4.5); Sodium 144 mEq/L (136-145); eGFR For African Americans > 60 (> 60); eGFR For Non-African Americans > 60 (> 60)
[2016-09-14] MEDS: Aspirin 81 MG TAB.CHEW PO SCH (08:36)
[2016-09-14] MEDS: amLODIPine 5 MG TABLET PO SCH (08:37)
[2016-09-14] MEDS: predniSONE 5 MG TABLET PO SCH (08:37)
[2016-09-14] MEDS: Multivit/Ca/Min/Fe/FA 1 TAB TABLET PO SCH (08:38)
[2016-09-14] MEDS: Metoprolol XL (24 HR) Succ 50 MG TAB.ER.24H PO SCH (08:39)
--- NOTE | 2016-09-14 09:54 | Internal Med Progress Note ---
Date of Encounter: 09/14/16 Time of Encounter: 09:53 - Assessment and plan (1) Acute CVA (cerebrovascular accident) Current Visit: Yes Status: Acute Assessment and plan: He will continue with intensive PT/OT/ST/TR. We will focus on gait, safety, transfers and ADLs. PT OT working on gait and transfer and balance. Speech therapy ongoing. Making progress. (2) Hypertension Current Visit: Yes Status: Chronic Assessment and plan: Blood pressure ELEVATED TODAY. Meds given Qualifiers: Hypertension type: essential hypertension Qualified Code(s): I10 - Essential (primary) hypertension (3) Hypokalemia Current Visit: Yes Status: Acute Assessment and plan: K supplement increased. We will continue to monitor potassium level - Subjective Interval history: No new for his complaint except for the same speech abnormality. Patient feels no energy this morning. No headache. No chest pain. No nausea no vomiting. - Constitutional Vitals: Temp Pulse Resp BP Pulse Ox 98.0 F 68 18 179/97 92 09/14/16 07:35 09/14/16 07:35 09/14/16 07:35 09/14/16 07:35 09/14/16 07:35 General appearance: Present: A&O X 2, no acute distress - Respiratory Respiratory exam: Present: CTAB. Absent: accessory muscle use, rales, rhonchi, wheezes - Cardiovascular Cardiovascular exam: Present: RRR, +S1, +S2. Absent: diastolic murmur, gallop, rubs, systolic murmur - GI/Abdominal GI/Abdominal exam: Present: normal bowel sounds, soft, no peritoneal signs. Absent: distended, tenderness - Extremities Exam Extremities exam: Present: warm, radial pulses palpable and symetrical. Absent : calf tenderness, cyanotic, pedal edema Internal Medicine: Result - Labs CBC & Chem 7: 09/14/16 05:15 09/14/16 05:15 Labs: Short CBC 09/14/16 Range/Units 05:15 WBC 6.4 (4.3-11.1) K/mcL Hgb 11.2 L (12.9-16.9) g/dL Hct 33.5 L (37.5-50.1) % Plt Count 199 (140-400) K/mcL Neutrophils # 3.8 (1.6-8.9) K/mcL BMP 09/14/16 05:15 Sodium 144 Potassium 3.2 L Chloride 110 H Carbon Dioxide 24 BUN 20 Creatinine 1.01 Glucose 113 H Calcium 8.8 - ABG Interpretation ABG results: PT/INR, D-dimer PT 12.0 Seconds (9.4-12.1) 09/14/16 05:15 - VTE Documentation of Mechanical Device: Graduated compression elastic hosiery Consult Discharge Plan - Plan Referrals: Job Hinojosa, PAPER SEALER [Primary Care Provider] -
[2016-09-14] MEDS: *HR* Metformin 500 MG TABLET PO SCH (13:29)
[2016-09-15] MEDS: Multivit/Ca/Min/Fe/FA 1 TAB TABLET PO SCH (08:15)
[2016-09-15] MEDS: amLODIPine 5 MG TABLET PO SCH (08:15)
[2016-09-15] MEDS: Aspirin 81 MG TAB.CHEW PO SCH (08:15)
[2016-09-15] MEDS: Metoprolol XL (24 HR) Succ 50 MG TAB.ER.24H PO SCH (08:15)
[2016-09-15] MEDS: predniSONE 5 MG TABLET PO SCH (08:15)
[2016-09-15] MEDS: *HR* Metformin 500 MG TABLET PO SCH (12:03)
--- NOTE | 2016-09-15 13:09 | Internal Med Progress Note ---
Date of Encounter: 09/15/16 Time of Encounter: 13:07 - Assessment and plan (1) Hypertension Current Visit: Yes Status: Chronic Assessment and plan: Well-controlled Qualifiers: Hypertension type: essential hypertension Qualified Code(s): I10 - Essential (primary) hypertension (2) Chronic steroid use Current Visit: No Status: Chronic Assessment and plan: Noted (3) Coronary artery disease Current Visit: No Status: Chronic Assessment and plan: Noted Qualifiers: Coronary Disease-Associated Artery/Lesion type: [place] artery [place] vs. transplanted heart: [place] heart Associated angina: without angina Qualified Code(s): I25.10 - Atherosclerotic heart disease of [place] coronary artery without angina pectoris (4) Acute CVA (cerebrovascular accident) Current Visit: Yes Status: Acute Assessment and plan: Patient's working with therapist for his deficits. - Time Spent With Patient less than 15 minutes - Subjective Interval history: Patient is moving slowly he is very hard of hearing. They have trouble communicating with him. - Constitutional Vitals: Temp Pulse Resp BP Pulse Ox 97.6 F 68 16 168/83 92 09/15/16 07:00 09/15/16 07:00 09/15/16 07:00 09/15/16 07:00 09/15/16 07:00 General appearance: Present: A&O X 2, no acute distress - Head Head exam: Present: atraumatic, normal inspection, normocephalic - Neck Neck exam general surgery: Present: supple, trachea midline. Absent: lymphadenopathy - Respiratory Respiratory exam: Present: CTAB. Absent: accessory muscle use, rales, rhonchi, wheezes - Cardiovascular Cardiovascular exam: Present: RRR, +S1, +S2. Absent: diastolic murmur, gallop, rubs, systolic murmur Internal Medicine: Result - Labs CBC & Chem 7: 09/14/16 05:15 09/14/16 05:15 Labs: Need to follow his potassium. - ABG Interpretation ABG results: PT/INR, D-dimer PT 12.0 Seconds (9.4-12.1) 09/14/16 05:15 - VTE Documentation of Mechanical Device: Graduated compression elastic hosiery Consult Discharge Plan - Plan Referrals: Job Hinojosa, ERECTION SHOP SUPERVISOR [Primary Care Provider] -
[2016-09-16] MEDS: Metoprolol XL (24 HR) Succ 50 MG TAB.ER.24H PO SCH (09:56)
[2016-09-16] MEDS: amLODIPine 5 MG TABLET PO SCH (09:56)
[2016-09-16] MEDS: predniSONE 5 MG TABLET PO SCH (09:56)
[2016-09-16] MEDS: Loratadine 10 MG TABLET PO PRN (09:57)
[2016-09-16] MEDS: Multivit/Ca/Min/Fe/FA 1 TAB TABLET PO SCH (09:57)
[2016-09-16] MEDS: Aspirin 81 MG TAB.CHEW PO SCH (09:57)
[2016-09-16] MEDS: *HR* Metformin 500 MG TABLET PO SCH (11:03)
--- NOTE | 2016-09-16 12:25 | Physical Med Progress Note ---
Date of Encounter: 09/17/16 Time of Encounter: 12:21 Assessment and Plan (1) Acute CVA (cerebrovascular accident) Current Visit: Yes Status: Acute Assessment and plan: 1. Mr. Maria will continue with intensive PT/OT/ST/TR to address gait, safety, ADLs and endurance. He will continue with his current regimen of medications. (2) CVA (cerebral vascular accident) Current Visit: Yes Status: Acute Qualifiers: CVA mechanism: unspecified Qualified Code(s): I63.9 - Cerebral infarction, unspecified Physical Medicine-PN: Subj Interval history: PMR PCC Note Mr. Maria continues to make slow progress. Family meeting held last week. Requires cues to reach back for chair prior to sitting. He has been incontinent of bowel and bladder. He is SBA for upper and lower body ADLS. He has functional hand coordination. He is having problems with toileting hygiene. No progress with dysarthria. He has no insight into his speech deficits which makes it difficult to make progress with speech intelligibility. Plan for discharge to home with home health PT/OT/ST. Discharge to home with 24 hour supervision. - Constitutional Vitals: Vital Signs Temp Pulse Resp BP Pulse Ox 09/16/16 07:09 97.5 F L 67 18 180/86 93 09/15/16 19:13 97.9 F 84 16 161/73 93 Intake and Output 09/15/16 09/16/16 09/16/16 23:59 07:59 15:59 Intake Total 240 / 240 600 / 600 360 / 360 Output Total 100 / 100 Balance 140 / 140 600 / 600 360 / 360 Intake: Oral 240 / 240 600 / 600 360 / 360 Output: Urine 100 / 100 Other: Meal Dinner Breakfast Percent of Meal Consumed 100% 80% # Urine Diapers 1 Blood Glucose* 148 100 133 Physical Medicine-PN: Obj Data - Labs CBC & Chem 7: 09/14/16 05:15 09/17/16 05:10 Labs: Laboratory Results - last 24 hr 09/15/16 09/15/16 09/15/16 08:10 11:10 16:38 Potassium POC Glucose 119 H 142 H 119 H 09/15/16 09/16/16 09/16/16 20:12 05:20 06:41 Potassium 3.3 L POC Glucose 148 H 100 H 09/16/16 11:31 Potassium POC Glucose 133 H - ABG Interpretation ABG results: PT/INR, D-dimer PT 12.0 Seconds (9.4-12.1) 09/14/16 05:15 - VTE Documentation of Mechanical Device: Graduated compression elastic hosiery Consult Discharge Plan - Plan Referrals: Job Hinojosa, VENEER LAYER [Primary Care Provider] -
--- NOTE | 2016-09-16 13:15 | Internal Med Progress Note ---
Date of Encounter: 09/16/16 Time of Encounter: 13:13 - Assessment and plan (1) Hypertension Current Visit: Yes Status: Chronic Assessment and plan: Blood pressures control Qualifiers: Hypertension type: essential hypertension Qualified Code(s): I10 - Essential (primary) hypertension (2) Chronic steroid use Current Visit: No Status: Chronic Assessment and plan: Noted (3) Coronary artery disease Current Visit: No Status: Chronic Assessment and plan: Noted Qualifiers: Coronary Disease-Associated Artery/Lesion type: [place] artery [place] vs. transplanted heart: [place] heart Associated angina: without angina Qualified Code(s): I25.10 - Atherosclerotic heart disease of [place] coronary artery without angina pectoris (4) Acute CVA (cerebrovascular accident) Current Visit: Yes Status: Acute Assessment and plan: Patient is being treated PT OT TR etc. For CVA - Time Spent With Patient less than 15 minutes - Subjective Interval history: According to the family we may be pretty close to baseline. - Constitutional Vitals: Temp Pulse Resp BP Pulse Ox 97.5 F L 67 18 180/86 93 09/16/16 07:09 09/16/16 07:09 09/16/16 07:09 09/16/16 07:09 09/16/16 07:09 General appearance: Present: A&O X 2, no acute distress - Head Head exam: Present: atraumatic, normal inspection, normocephalic - Neck Neck exam general surgery: Present: supple, trachea midline. Absent: lymphadenopathy - Respiratory Respiratory exam: Present: CTAB. Absent: accessory muscle use, rales, rhonchi, wheezes - Cardiovascular Cardiovascular exam: Present: RRR, +S1, +S2. Absent: diastolic murmur, gallop, rubs, systolic murmur Internal Medicine: Result - Labs CBC & Chem 7: 09/14/16 05:15 09/16/16 05:20 Labs: BMP 09/16/16 05:20 Potassium 3.3 L - ABG Interpretation ABG results: PT/INR, D-dimer PT 12.0 Seconds (9.4-12.1) 09/14/16 05:15 - VTE Documentation of Mechanical Device: Graduated compression elastic hosiery Consult Discharge Plan - Plan Referrals: Job Hinojosa, DIPPER FISH [Primary Care Provider] -
[2016-09-17 05:30] LABS: BUN/Creatinine Ratio 21 (6-26); Blood Urea Nitrogen 22 mg/dL (8-26); Calcium 8.9 mg/dL (8.6-10.8); Carbon Dioxide 26 mEq/L (19-29); Chloride 110 mEq/L (98-109); Glucose 116 mg/dL (70-99); Osmolality,Calculated 304 (280-300); Potassium 3.3 mEq/L (3.5-4.5); Sodium 145 mEq/L (136-145); eGFR For African Americans > 60 (> 60); eGFR For Non-African Americans > 60 (> 60)
[2016-09-17] MEDS: Multivit/Ca/Min/Fe/FA 1 TAB TABLET PO SCH (09:00)
[2016-09-17] MEDS: Aspirin 81 MG TAB.CHEW PO SCH (09:00)
[2016-09-17] MEDS: Loratadine 10 MG TABLET PO PRN (09:00)
[2016-09-17] MEDS: amLODIPine 5 MG TABLET PO SCH (09:00)
[2016-09-17] MEDS: Metoprolol XL (24 HR) Succ 50 MG TAB.ER.24H PO SCH (09:01)
[2016-09-17] MEDS: predniSONE 5 MG TABLET PO SCH (09:01)
[2016-09-17] MEDS: *HR* Metformin 500 MG TABLET PO SCH (11:56)
--- NOTE | 2016-09-17 13:14 | Discharge Summary ---
Date of Encounter: 09/18/16 Time of Encounter: 13:12 - Discharge Diagnosis (1) Hypertension Priority: Secondary Status: Chronic Comments: The blood pressure seems somewhat variable. Generally speaking it has been reasonably well-controlled.follow up with his primary care doctor. Qualifiers: Hypertension type: essential hypertension Qualified Code(s): I10 - Essential (primary) hypertension (2) Chronic steroid use Priority: Secondary Status: Chronic Comments: This was noted Code(s): T32.81 - Corrosions involving 80-89% of body surface with 10-19% third degree corrosion (3) Coronary artery disease Status: Chronic Comments: Noted Qualifiers: Coronary Disease-Associated Artery/Lesion type: [place] artery [place] vs. transplanted heart: [place] heart Associated angina: without angina Qualified Code(s): I25.10 - Atherosclerotic heart disease of [place] coronary artery without angina pectoris (4) Acute CVA (cerebrovascular accident) Priority: Primary Status: Acute Comments: She work with PT OT TR. He needs standby definitely cannot live alone. - Discharge Medications Home Medications: Aspirin 81 mg PO DAILY 09/04/15 [History] Doxazosin Mesylate [Cardura Xl] 4 mg PO HS 09/04/15 [History] Irbesartan [Avapro] 300 mg PO DAILY 09/04/15 [History] Meclizine HCl [Verticalm] 25 mg PO TID PRN 09/04/15 [History] Potassium Chloride [Klor-Con Sprinkle] 20 meq PO BID 09/04/15 [History] Amlodipine Besylate 10 mg PO DAILY 09/02/16 [History] Atorvastatin Calcium [Lipitor] 80 mg PO HS 09/02/16 [History] Loratadine [Claritin] 10 mg PO PRN PRN 09/02/16 [History] Metoprolol Succinate 200 mg PO DAILY 09/02/16 [History] metFORMIN [Glucophage] 500 mg PO 1200 09/02/16 [History] predniSONE [Prednisone] 2.5 mg PO DAILY 09/02/16 [History] Donepezil [Aricept] 5 mg PO DAILY 09/03/16 [History] Garlic [Odor Free Garlic] 100 mg PO DAILY 09/03/16 [History] Lutein 10 mg PO DAILY 09/03/16 [History] Multivitamin [One Daily Multivitamin] 1 each PO DAILY 09/03/16 [History] Butalb/Acetaminophen/Caffeine [Fioricet 50-300-40 mg Capsule] 1 each PO PRN PRN 09/04/16 [History] Clopidogrel [Plavix] 75 mg PO DAILY #30 tablet 09/04/16 [Rx] HYDROcodone/Acet 5/325 mg [[place] 5-325 mg] 1 tab PO TID PRN #12 tab 09/04/16 [Rx ] Allergies/Adverse Reactions: Allergies No Known Allergies Allergy (Verified 09/02/15 09:19) Date of admission: 09/04/16 20:33 Primary care physician: Job Hinojosa CNP Consults: 09/04/16 21:41 Consult to [place] [CONS] Routine Reason for SW Consult: family concerned about what insurance will cover 09/05/16 01:40 Consult to Occupational Therapy [CONS] Routine Comment: Evaluate, develop and implement POC Reason for Consult: Eval and treat Consult to Physical Therapy [CONS] Routine Comment: Evaluate, develop and implement POC Reason for Consult: Eval and treat Consult to Recreational Therapy [CONS] Routine Comment: Evaluate, develop and implement POC Consult to [place] [CONS] Routine Reason for SW Consult: DC planning Consult to Speech Therapy [CONS] Routine Comment: Evaluate, develop and implement POC Reason for Consult: speech impairment Call Completed: Yes 09/08/16 15:46 Consult to Physician [CONS] Routine Consulting Provider: Abigail Rashid Reason for Consult: s/p cva Call Completed: Yes Discharging clinician: Mario Dias Anticipated date of discharge: 09/18/16 - Patient Status Disposition: Home Health Service Condition: Fair Functional capacity at discharge: uses cane/walker Overall status at discharge: patient is progressing back to baseline - Discharge Instructions Follow Up With: Job Hinojosa CNP [Primary Care Provider] - - Diet and Activity Activity: ambulate only with your walker Diet: diabetic diet Interval History: Patient was sent here for rehabilitation status post CVA. I think that some of this problems were pre-existing. But he needs help and family will assist at home. This along with home health services Hospital course: Mr. Maria is a 86 year old male - Time Spent with Patient Total time spent providing and/or coordinating discharge services: - Constitutional Vitals: Temp Pulse Resp BP Pulse Ox 98.1 F 63 18 148/85 92 09/17/16 07:19 09/17/16 07:19 09/17/16 07:19 09/17/16 07:43 09/17/16 07:19 General appearance: Present: A&O X 2, no acute distress - Head Head exam: Present: atraumatic, normal inspection, normocephalic - Neck Neck exam general surgery: Present: supple, trachea midline. Absent: lymphadenopathy - Respiratory Respiratory exam: Present: CTAB. Absent: accessory muscle use, rales, rhonchi, wheezes - Cardiovascular Cardiovascular exam: Present: RRR, +S1, +S2. Absent: diastolic murmur, gallop, rubs, systolic murmur - VTE Documentation of Mechanical Device: Graduated compression elastic hosiery
--- NOTE | 2016-09-17 13:22 | Physician Discharge Referral ---
Home Health/Hosp Referral Info Transfer to: Home Health Provider in Charge Post Discharge: PCP - Diagnosis (1) Hypertension Priority: Secondary Status: Chronic (2) Chronic steroid use Priority: Secondary Status: Chronic (3) Coronary artery disease Priority: Secondary Status: Chronic (4) Acute CVA (cerebrovascular accident) Priority: Primary Status: Acute - Respiratory Orders Smoking Cessation: Smoking cessation has been advised. For more information, call the [place] Tobacco Quit Line at 3-431-WEMI-NOW. - Transfer Medications Home Medications: Aspirin 81 mg PO DAILY 09/04/15 [History] Doxazosin Mesylate [Cardura Xl] 4 mg PO HS 09/04/15 [History] Irbesartan [Avapro] 300 mg PO DAILY 09/04/15 [History] Meclizine HCl [Verticalm] 25 mg PO TID PRN 09/04/15 [History] Potassium Chloride [Klor-Con Sprinkle] 20 meq PO BID 09/04/15 [History] Amlodipine Besylate 10 mg PO DAILY 09/02/16 [History] Atorvastatin Calcium [Lipitor] 80 mg PO HS 09/02/16 [History] Loratadine [Claritin] 10 mg PO PRN PRN 09/02/16 [History] Metoprolol Succinate 200 mg PO DAILY 09/02/16 [History] metFORMIN [Glucophage] 500 mg PO 1200 09/02/16 [History] predniSONE [Prednisone] 2.5 mg PO DAILY 09/02/16 [History] Donepezil [Aricept] 5 mg PO DAILY 09/03/16 [History] Garlic [Odor Free Garlic] 100 mg PO DAILY 09/03/16 [History] Lutein 10 mg PO DAILY 09/03/16 [History] Multivitamin [One Daily Multivitamin] 1 each PO DAILY 09/03/16 [History] Butalb/Acetaminophen/Caffeine [Fioricet 50-300-40 mg Capsule] 1 each PO PRN PRN 09/04/16 [History] Clopidogrel [Plavix] 75 mg PO DAILY #30 tablet 09/04/16 [Rx] HYDROcodone/Acet 5/325 mg [[place] 5-325 mg] 1 tab PO TID PRN #12 tab 09/04/16 [Rx ] Allergies/Adverse Reactions: Allergies No Known Allergies Allergy (Verified 09/02/15 09:19) Certification: Further, I certify that my clinical findings support that this patient is homebound (i.e. absences from home require considerable and taxing effort and are for medical reasons or [facility] or infrequently or short duration when for other reasons) because: Homebound Reason: Patient requires assistance of a person or device to safely leave home Attestation: My signature below is to certify that this patient is under my care and that I, or nurse practitioner, or a physician's retail loan originator assistant working with me, has a face-to -face encounter with this patient.
--- NOTE | 2016-09-17 13:24 | Internal Med Progress Note ---
Date of Encounter: 09/17/16 Time of Encounter: 13:22 - Assessment and plan (1) Hypertension Current Visit: No Status: Chronic Assessment and plan: Noted the pressure somewhat variable but needs to be followed by his primary care doctor Qualifiers: Hypertension type: essential hypertension Qualified Code(s): I10 - Essential (primary) hypertension (2) Chronic steroid use Current Visit: No Status: Chronic Code(s): T32.81 - Corrosions involving 80- 89% of body surface with 10-19% third degree corrosion (3) Coronary artery disease Current Visit: No Status: Chronic Qualifiers: Coronary Disease-Associated Artery/Lesion type: [place] artery [place] vs. transplanted heart: [place] heart Associated angina: without angina Qualified Code(s): I25.10 - Atherosclerotic heart disease of [place] coronary artery without angina pectoris (4) Acute CVA (cerebrovascular accident) Current Visit: Yes Status: Acute Assessment and plan: Agency of PT OT TR and speech. She is very hard of hearing and sometimes speech is unintelligible - Subjective Interval history: According to the family we may be pretty close to baseline. - Constitutional Vitals: Temp Pulse Resp BP Pulse Ox 98.1 F 63 18 148/85 92 09/17/16 07:19 09/17/16 07:19 09/17/16 07:19 09/17/16 07:43 09/17/16 07:19 General appearance: Present: A&O X 2, no acute distress - Head Head exam: Present: atraumatic, normal inspection, normocephalic - Respiratory Respiratory exam: Present: CTAB. Absent: accessory muscle use, rales, rhonchi, wheezes - Cardiovascular Cardiovascular exam: Present: RRR, +S1, +S2. Absent: diastolic murmur, gallop, rubs, systolic murmur Internal Medicine: Result - Labs CBC & Chem 7: 09/14/16 05:15 09/17/16 05:10 Labs: BMP 09/17/16 05:10 Sodium 145 Potassium 3.3 L Chloride 110 H Carbon Dioxide 26 BUN 22 Creatinine 1.06 Glucose 116 H Calcium 8.9 Potassium still little low and I am going to recheck that in the a.m. prior to discharge - ABG Interpretation ABG results: PT/INR, D-dimer PT 12.0 Seconds (9.4-12.1) 09/14/16 05:15 - VTE Documentation of Mechanical Device: Graduated compression elastic hosiery Consult Discharge Plan - Plan Referrals: Job Hinojosa, WRAPPER COUNTER [Primary Care Provider] -
[2016-09-18 05:17] LABS: BUN/Creatinine Ratio 20 (6-26); Blood Urea Nitrogen 22 mg/dL (8-26); Carbon Dioxide 24 mEq/L (19-29); Chloride 109 mEq/L (98-109); Glucose 112 mg/dL (70-99); Osmolality,Calculated 300 (280-300); Potassium 3.2 mEq/L (3.5-4.5); Sodium 143 mEq/L (136-145); eGFR For African Americans > 60 (> 60); eGFR For Non-African Americans > 60 (> 60)
[2016-09-18 07:39] VITALS: BP 169/81
[2016-09-18] MEDS: amLODIPine 5 MG TABLET PO SCH (10:05)
[2016-09-18] MEDS: predniSONE 5 MG TABLET PO SCH (10:06)
[2016-09-18] MEDS: Aspirin 81 MG TAB.CHEW PO SCH (10:06)
[2016-09-18] MEDS: Metoprolol XL (24 HR) Succ 50 MG TAB.ER.24H PO SCH (10:06)
[2016-09-18] MEDS: Multivit/Ca/Min/Fe/FA 1 TAB TABLET PO SCH (10:07)
[2016-09-18] MEDS: *HR* Metformin 500 MG TABLET PO SCH (11:48)
== END 2016-09-18 15:20 | disposition home health service (06) | DRG 57 ==
LOC: INPGRE 20:33
PROVIDERS: ADMIT Internal Medicine; ATTEND Internal Medicine